=== PATIENT | male | born 1970 | race African-American/Black ===

== ENCOUNTER 2021-12-08 07:12 | Emergency (ER) | payer BC, OTHER ==
[~2021-12-08] VITALS: Ht 175.3 cm; Wt 127.0 kg
[2021-12-08] MEDS ORDERED: MORPHINE SULFATE 4 MG/ML SYR/VIAL IV ONE (07:45)
[2021-12-08 08:10] LABS: Urine Bacteria NONE SEEN /hpf (None Seen); Urine Blood TRACE /uL (Negative); Urine Specific Gravity 1.014 (1.001-1.035); Urine WBC <1 /hpf (0 - 3)
[2021-12-08 08:39] LABS: Basophils # (auto) 0.1 10 ^3/uL (0-0.2); Eosinophils # (auto) 0.1 10 ^3/uL (0-0.8); Eosinophils % (auto) 0.6 % (0.0-7.0); Hematocrit 40.3 % (41.0-53.0); Monocytes # (auto) 0.7 10 ^3/uL (0-1.3); Red Blood Cells 5.03 10^6/uL (4.5-5.90)
[2021-12-08 08:41] LABS: Basophils % (auto) 0.6 % (0.0-2.0); Hemoglobin 13.2 g/dL (13.5-17.5); Lymphocytes # (auto) 1.1 10 ^3/uL (0.4-5.4); Lymphocytes % (auto) 10.9 % (10.0-50.0); Mean Corpuscular Hemoglobin 26.3 pg (28.0-32.0); Mean Corpuscular Hgb Conc. 32.8 g/dL (32.0-36.0); Monocytes % (auto) 6.8 % (0.0-12.0); Neutrophils # (auto) 7.8 10 ^3/uL (1.6-8.6); Neutrophils % (auto) 81.1 % (37.0-80.0); Red Cell Distribution Width 14.3 % (11.8-14.3); White Blood Cell 9.6 10^3/uL (4.4-10.8)
[2021-12-08 09:17] LABS: Albumin 3.5 g/dL (3.4-5.0); Calcium 8.4 mg/dL (8.5-10.1); Potassium 3.3 mmol/L (3.5-5.1)
[2021-12-08 09:20] VITALS: BP 142/89
[2021-12-08 09:20] LABS: BUN/Creatinine Ratio 7.9; Bilirubin, Total 0.5 mg/dL (0.2-1.0); Total Protein 7.6 g/dL (6.4-8.2)
[2021-12-08] MEDS: SODIUM CHLORIDE 0.9% 1,000 ML IVB ONE (09:45)
[2021-12-08] MEDS ORDERED: ONDA-144 PO (09:57)
[2021-12-08] MEDS ORDERED: TRAM-297 PO (09:57)
[2021-12-08] MEDS: ONDANSETRON HCL 4 MG/2 ML VIAL IV ONE (10:22)
[2021-12-08] MEDS: KETOROLAC TROMETH 30 MG/ML 1ML VIAL IV ONE (10:22)
== END 2021-12-08 10:52 | disposition home or self-care (01) ==
LOC: ER 07:12
DX: N20.1 Calculus of ureter (principal); R11.2 Nausea with vomiting, unspecified; I10 Essential (primary) hypertension
CPT/HCPCS: 36415; 74176; 80053; 81001; 82150; 83690; 85025; 96361; 96374; 96375; 99284; J1885; J2405; J7030